=== PATIENT | female | born 1945 | race Caucasian/White ===

== ENCOUNTER 2016-05-20 11:20 | Emergency (ER) | payer MEDICAID ==
[~2016-05-20] VITALS: Ht 152.4 cm; Wt 68.0 kg
[~2016-05-20 11:20] MED LIST: ACET325T33 PO; AMO500 PO; GABA300C16 PO; HYDR-906 PO; IBUP400T22 PO; UDROBDM PO; ULT50 PO; ZOC20 PO
[2016-05-20 11:23] VITALS: Ht 152.4 cm; Wt 68.0 kg
[2016-05-20] MEDS ORDERED: IBUPROFEN 600 MG TAB PO ONE (12:00)
--- NOTE | 2016-05-20 12:19 | RADRPT ---
PROCEDURE: XR Chest/right ribs. CLINICAL INDICATION: Chest pain TECHNIQUE: Chest PA/ribs 3vws COMPARISON: None available FINDINGS: The mediastinal structures are unremarkable. There is calcification of the thoracic aorta (consiste nt with atherosclerosis). The heart is normal in size and configuration. The pulmonary vascularity is normal. The lung valdes are unremarkable. No consolidation is identified. The pleural spaces are unremarkable. There is normal mineralization. No rib fractures are identified IMPRESSION: Calcification of the thoracic aorta (consistent with atherosclerosis). No rib fracture identified No evidence for active cardiopulmonary disease. RPTAT: HGDB .James Rodriguez MD, Date Time Electronically viewed and signed by .James Rodriguez MD, on 05/20/2016 12:19 .B/
[2016-05-20] MEDS ORDERED: IBUP400T22 PO (12:30)
[2016-05-20] MEDS ORDERED: ULT50 PO (12:30)
--- NOTE | 2016-05-20 12:34 | ERD ---
ER Documentation Chief Complaint Date/Time DATE: 05/20/16 TIME: 12:33 Chief Complaint right sided body ache s/p slip and fall 4 days ago HPI This 71-year-old female presents with right-sided chest wall pain after falling and hitting the ground 4 days ago. She has pain with inspiration. She denies hemoptysis, fevers, neck pain, weakness, bowel or bladder incontinence or additional complaints of injury other than her right chest wall. ROS All systems reviewed and are negative except as per history of present illness. Medications Home Meds Active Scripts Tramadol HCl (Tramadol HCl) 50 Mg Tablet, 50 MG PO Q4 Y for PAIN, #15 TAB Prov:JANY DELACRUZ MD 05/20/16 Ibuprofen* (Motrin*) 400 Mg Tab, 400 MG PO Q6, #18 TAB Prov:JANY DELACRUZ MD 05/20/16 Tramadol HCl (Tramadol HCl) 50 Mg Tab, 50 MG PO Q6, #20 TAB Prov:LIZANDRO RODRIGUEZ PA-C 03/25/15 Guaifenesin-Dextromethorphan* (Robitussin* DM) 100MG/10MG/5ML Syrup, 10 ML PO Q6H Y for COUGH, #240 ML 0 Refills Prov:TONY AMATO PA-C 03/23/15 Gabapentin* (Gabapentin*) 300 Mg Capsule, 300 MG PO DAILY, #10 CAP 0 Refills Prov:TONY AMATO PA-C 03/23/15 Hydrocodone Bit-Acetaminophen ([place]) 5-325 Mg Tablet, 1 TAB PO Q4H Y for PAIN, #7 TAB Prov:KELSEY OROZCO DO 12/26/14 Acetaminophen* (Tylenol*) 325 Mg Tablet, 325 MG PO Q4H Y for PAIN AND OR ELEVATED TEMP for 30 Days, TAB Prov:LIZANDRO RODRIGUEZ PA-C 11/19/14 Reported Medications Amoxicillin* (Amoxicillin*) 500 Mg Cap, 500 MG PO TID X 5 DAYS, CAP 06/10/14 Ibuprofen* (Ibuprofen*) 400 Mg Tablet, 400 MG PO Q6-8 HOURS Y for PAIN, TAB 06/10/14 Simvastatin (Simvastatin) 20 Mg Tablet, 20 MG PO HS, TAB 11/05/13 Allergies Allergies: Coded Allergies: No Known Drug Allergies (Verified Allergy, Mild, 03/23/15) PMhx/Soc History of Surgery: Yes (nephrectomy, oophorectomy,cholecystectomy,bilat ear sx ) Anesthesia Reaction: No Hx Neurological Disorder: No Hx Respiratory Disorders: No Hx Cardiac Disorders: No Hx Psychiatric Problems: No Hx Miscellaneous Medical Probl: Yes (dyslipidemia,GERD; ) Hx Alcohol Use: No Hx Substance Use: No Hx Tobacco Use: No Smoking Status: Never smoker Physical Exam Vitals Vital Signs Date Time Temp Pulse Resp B/P Pulse Ox O2 Delivery O2 Flow Rate FiO2 05/20/16 11:23 98.0 92 18 125/65 100 Physical Exam Const: [] Alert, [id number], speaking complete sentences. Head: Atraumatic Eyes: Normal Conjunctiva ENT: Normal External Ears, Nose and Mouth. Neck: Full range of motion..~ No meningismus. Resp: Clear to auscultation bilaterally but there is some tenderness in the right chest wall approximately T5 without crepitance, deformities, skin changes. Cardio: Regular rate and rhythm, no murmurs Abd: Soft, non tender, non distended. Normal bowel sounds Skin: No petechiae or rashes Back: No midline or flank tenderness Ext: No cyanosis, or edema Neur: Awake and alert Psych: Normal Mood and Affect Results 24 hrs Current Medications Medications (Trade) Dose Ordered Sig/Darrel Route PRN Reason Start Time Stop Time Status Last Admin Dose Admin Ibuprofen (Motrin) 600 mg ONCE ONCE PO 05/20/16 12:00 05/20/16 12:01 DC 05/20/16 11:41 Procedures/MDM X-ray right ribs 2V Interpreted by me: Soft Tissue: No acute abnormalities Bones: No acute abnormalities Mediastinum/Cardiac Silhouette/Lungs: [No acute abnormalities]. Impression- normal right rib series Patient was given ibuprofen for pain. Patient presents with signs and symptoms of right rib contusion without evidence of fracture, hemoptysis, hemothorax, pneumothorax, cardiac contusion, additional complications of rib trauma. She will treated with tramadol and ibuprofen further observation at home. The patient was stable with no new complaints during the ER course. Clinically, there is no current evidence to suggest meningitis, sepsis, acute abdomen, pneumonia, acute coronary syndrome, pulmonary embolism, or any other emergent condition appearing to require further evaluation or hospitalization. The patient should certainly return for any new or worsening symptoms per the aftercare instructions. They should otherwise follow-up with her primary care doctor for reevaluation this week. Departure Diagnosis: Primary Impression: Contusion of rib on right side Encounter type: initial encounter Qualified Code: S20.211A - Contusion of rib on right side, initial encounter Condition: Stable Patient Instructions: Rib Contusion Additional Instructions: x ray normal. JANY DELACRUZ MD May 20, 2016 12:34
== END 2016-05-20 12:42 | disposition home or self-care (01) ==
LOC: FTE 11:20
DX: S20.211A Contusion of right front wall of thorax, initial encounter (principal); W01.0XXA Fall on same level from slipping, tripping and stumbling without subsequent striking against object, initial encounter; Y92.9 Unspecified place or not applicable
CPT/HCPCS: 71100; Z7502; Z7610

== ENCOUNTER 2016-06-30 13:17 | Emergency (ER) | payer MEDICAID ==
[~2016-06-30] VITALS: Wt 68.5 kg
[~2016-06-30 13:17] MED LIST changes: +TRAM50TA2 PO; -ULT50 PO
[2016-06-30] MEDS ORDERED: SOD CHLORIDE 0.9% 1,000 ML IV STA (15:26)
[2016-06-30] MEDS ORDERED: ONDANSETRON 4 MG INJ IV STA ×2 (15:26→18:09)
[2016-06-30 15:55] LABS: BASOPHILS % 0.2 % (0.0-2.0); CONDITION 1; EOSINOPHILS # 0.1 10^3/ul (0.0-0.5); EOSINOPHILS % 1.1 % (0.0-7.0); HEMATOCRIT 43.2 % (37.0-47.0); HEMOGLOBIN 14.2 g/dl (12.0-16.0); LYMPHOCYTES # 3.8 10^3/ul (0.8-2.9); LYMPHOCYTES % 35.4 % (15.0-51.0); MEAN CORPUSCULAR HEMOGLOBIN 28.8 pg (29.0-33.0); MEAN CORPUSCULAR HGB CONC 32.9 g/dl (32.0-37.0); MEAN CORPUSCULAR VOLUME 87.5 fl (82.0-101.0); MEAN PLATELET VOLUME 7.9 fl (7.4-10.4); MONOCYTE # 0.6 10^3/ul (0.3-0.9); MONOCYTES % 5.3 % (0.0-11.0); NEUTROPHIL # 6.3 10^3/ul (1.6-7.5); PLATELET COUNT 263 10^3/UL (140-440); RED BLOOD COUNT 4.93 10^6/ul (4.20-5.40); RED CELL DISTRIBUTION WIDTH 14.4 % (11.5-14.5); UNCORRECTED WBC 10.8 10^3/ul (4.8-10.8); WHITE BLOOD COUNT 10.8 10^3/ul (4.8-10.8)
[2016-06-30 16:04] LABS: ALBUMIN 4.7 g/dl (3.3-4.9)
[2016-06-30 16:05] LABS: POTASSIUM 4.3 mmol/L (3.5-5.1)
[2016-06-30 16:06] LABS: ADD UMIC NO; URINE BILIRUBIN (Dip) NEGATIVE (NEGATIVE); URINE BLOOD (Dip) NEGATIVE (NEGATIVE); URINE COLOR LT. YELLOW (YELLOW); URINE GLUCOSE (Dip) NEGATIVE (NEGATIVE); URINE KETONES (Dip) NEGATIVE (NEGATIVE); URINE LEUKOCYTE ESTERASE (Dip) NEGATIVE (NEGATIVE); URINE NITRITE (Dip) NEGATIVE (NEGATIVE); URINE TOTAL PROTEIN (Dip) NEGATIVE (NEGATIVE); URINE UROBILINOGEN (Dip) 0.2 E.U./dL (0.1-1.0)
[2016-06-30 16:07] LABS: ALBUMIN/GLOBULIN RATIO 1.2; BILIRUBIN,INDIRECT 0.1 mg/dl (0-1.1); BILIRUBIN,TOTAL 0.1 mg/dl (0.2-1.3); CALCIUM 9.4 mg/dl (8.4-10.2); CREATININE 0.77 mg/dl (0.44-1.00); TOTAL PROTEIN 8.6 g/dl (6.1-8.1)
--- NOTE | 2016-06-30 16:09 | RADRPT ---
PROCEDURE: XR Chest. CLINICAL INDICATION: Shortness of breath. TECHNIQUE: A single portable view of the chest was obtained. COMPARISON: 05/20/2016 FINDINGS: The aorta is tortuous and atherosclerotic. The cardiomediastinal silhouette is otherwise within nor mal limits. The lung volumes are low with bibasilar atelectasis. The remaining lungs and pleural spa aidee are clear. The soft tissues and osseous structures demonstrate benign age related senescent viral nges. IMPRESSION: No acute cardiopulmonary disease. Low lung volumes with bibasilar compressive atelectasis. RPTAT: HPNM Physician Becky Date Time Electronically viewed and signed by Lucio Nolan Physician on 06/30/2016 16:09 /
--- NOTE | 2016-06-30 17:52 | RADRPT ---
PROCEDURE: CT abdomen and pelvis without contrast. CLINICAL INDICATION: Right upper quadrant pain and prior history of cholecystectomy and nephrectom y TECHNIQUE: CT scan of the abdomen and pelvis without contrast was performed on a multislice CT [facility] utilizing axial imaging from the lung bases through the pubis symphysis. The patient was scann ed without intravenous contrast. Sagittal and coronal reformatted images were made. The CTDIvol is mGy and the DLP is mGycm. One of the following 3 dose reduction techniques were used during this CT examination: automated exp osure control; adjustment of the mA and /or kV according to patient size; or use of iterative recons truciton technique. COMPARISON: 11/05/2013 CT abdomen pelvis. FINDINGS: The lung bases are clear. The visualized heart size demonstrates mild cardiomegaly. No pericardial or pleural effusions are present. A small hiatal hernia is present. The visualized liver, spleen, p ancreas, and bilateral adrenal glands are normal. The patient is status post cholecystectomy and rig ht nephrectomy changes. The visualized left kidney is normal without evidence for hydroureteronephr osis or nephroureterolithiasis. The visualized bowel is nonobstructive. No evidence for diverticulosis, diverticulitis or appendici tis is present. The appendix is normal. A distended urinary bladder is present. The patient is status post hysterectomy changes. No eviden ce for masses, pathologic lymphadenopathy, pneumoperitoneum or ascites is present. The surrounding osseous structures are remarkable for degenerative spondylosis of the imaged spine. Grade 1 spondylolisthesis of L5 on S1 is present without evidence for spondylolysis. Severe degene rative endplate and vacuum disk phenomenon is present at L5-S1. IMPRESSION: 1. No evidence for acute intra-abdominal or pelvic pathology. 2. Small hiatal hernia 3. Status post cholecystectomy, right nephrectomy and hysterectomy changes. 4. Degenerative spondylosis of the imaged spine and grade 1 spondylolisthesis of L5 and S1 without evidence for spondylolysis. RPTAT: HDC .April Brian MD, Date Time Electronically viewed and signed by .April Brian MD, on 06/30/2016 17:52 .C/
[2016-06-30] MEDS ORDERED: ONDA8TAB14 PO (17:58)
[2016-06-30] MEDS ORDERED: ACET500C5 PO (17:58)
--- NOTE | 2016-06-30 18:02 | ERD ---
ER Documentation Chief Complaint Date/Time DATE: 06/30/16 TIME: 18:00 Chief Complaint vomiting since last night worse today. no abd pain . gen weakness ROS All systems reviewed and are negative except as per history of present illness. Medications Home Meds Active Scripts Acetaminophen* (Tylophen*) 500 Mg Capsule, 1 CAP PO Q6H Y for PAIN AND OR ELEVATED TEMP, #15 CAP Prov:JNAY DELACRUZ MD 06/30/16 Ondansetron (Ondansetron Odt) 8 Mg Tab.rapdis, 8 MG PO Q6H Y for NAUSEA AND/OR VOMITING, #8 TAB Prov:JANY DELACRUZ MD 06/30/16 Tramadol HCl (Tramadol HCl) 50 Mg Tablet, 50 MG PO Q4 Y for PAIN, #15 TAB Prov:JANY DELACRUZ MD 05/20/16 Ibuprofen* (Motrin*) 400 Mg Tab, 400 MG PO Q6, #18 TAB Prov:JANY DELACRUZ MD 05/20/16 Tramadol HCl (Tramadol HCl) 50 Mg Tab, 50 MG PO Q6, #20 TAB Prov:LIZANDRO RODRIGUEZ PA-C 03/25/15 Guaifenesin-Dextromethorphan* (Robitussin* DM) 100MG/10MG/5ML Syrup, 10 ML PO Q6H Y for COUGH, #240 ML 0 Refills Prov:TONY AMATO PA-C 03/23/15 Gabapentin* (Gabapentin*) 300 Mg Capsule, 300 MG PO DAILY, #10 CAP 0 Refills Prov:TONY AMATO PA-C 03/23/15 Hydrocodone Bit-Acetaminophen ([place]) 5-325 Mg Tablet, 1 TAB PO Q4H Y for PAIN, #7 TAB Prov:KELSEY OROZCO DO 12/26/14 Acetaminophen* (Tylenol*) 325 Mg Tablet, 325 MG PO Q4H Y for PAIN AND OR ELEVATED TEMP for 30 Days, TAB Prov:LIZANDRO RODRIGUEZ PA-C 11/19/14 Reported Medications Amoxicillin* (Amoxicillin*) 500 Mg Cap, 500 MG PO TID X 5 DAYS, CAP 06/10/14 Ibuprofen* (Ibuprofen*) 400 Mg Tablet, 400 MG PO Q6-8 HOURS Y for PAIN, TAB 06/10/14 Simvastatin (Simvastatin) 20 Mg Tablet, 20 MG PO HS, TAB 11/05/13 Allergies Allergies: Coded Allergies: No Known Drug Allergies (Verified Allergy, Mild, 03/23/15) PMhx/Soc History of Surgery: Yes (nephrectomy, oophorectomy,cholecystectomy,bilat ear sx ) Anesthesia Reaction: No Hx Neurological Disorder: No Hx Respiratory Disorders: No Hx Cardiac Disorders: No Hx Psychiatric Problems: No Hx Miscellaneous Medical Probl: Yes (dyslipidemia,GERD; ) Hx Alcohol Use: No Hx Substance Use: No Hx Tobacco Use: No Physical Exam Vitals Vital Signs Date Time Temp Pulse Resp B/P Pulse Ox O2 Delivery O2 Flow Rate FiO2 06/30/16 13:36 97.7 79 20 140/75 98 Physical Exam Const: [] Alert, [id number] per Head: Atraumatic Eyes: Normal Conjunctiva ENT: Normal External Ears, Nose and Mouth. Neck: Full range of motion..~ No meningismus. Resp: Clear to auscultation bilaterally Cardio: Regular rate and rhythm, no murmurs Abd: Soft, mild generalized tenderness primarily in the right side of the abdomen. No exquisite Colon's sign and no tenderness at McBurney's point, non distended. Normal bowel sounds Skin: No petechiae or rashes Back: No midline or flank tenderness Ext: No cyanosis, or edema Neur: Awake and alert Psych: Normal Mood and Affect Result Diagram: 06/30/16 1543 06/30/16 1543 Results 24 hrs Laboratory Tests Test 06/30/16 15:40 06/30/16 15:43 Urine Bilirubin NEGATIVE Urine Clarity CLEAR Urine Color LT. YELLOW Urine Glucose NEGATIVE% Urine Hemoglobin NEGATIVE Urine Ketones NEGATIVE Urine Leukocyte Esterase NEGATIVE Urine Nitrite NEGATIVE Urine Specific [place] <=1.005 Urine Total Protein NEGATIVE Urine Urobilinogen 0.2 E.U./dL Urine pH 5.5 Alanine Aminotransferase (ALT/SGPT) 34IU/L Albumin 4.7g/dl Albumin/Globulin Ratio 1.20 Alkaline Phosphatase 117IU/L Anion Gap 18 Aspartate Amino Transf (AST/SGOT) 31IU/L Basophils # 0.010^3/ul Basophils % 0.2% Blood Morphology Comment Blood Urea Nitrogen 15mg/dl Calcium Level 9.4mg/dl Carbon Dioxide Level 26mmol/L Chloride Level 104mmol/L Creatinine 0.77mg/dl Direct Bilirubin 0.00mg/dl Eosinophils # 0.110^3/ul Eosinophils % 1.1% Globulin 3.90g/dl Glucose Level 121mg/dl Hematocrit 43.2% Hemoglobin 14.2g/dl Indirect Bilirubin 0.1mg/dl Lipase 92U/L Lymphocytes # 3.810^3/ul Lymphocytes % 35.4% Mean Corpuscular Hemoglobin 28.8pg Mean Corpuscular Hemoglobin Concent 32.9g/dl Mean Corpuscular Volume 87.5fl Mean Platelet Volume 7.9fl Monocytes # 0.610^3/ul Monocytes % 5.3% Neutrophils # 6.310^3/ul Neutrophils % 58.0% Nucleated Red Blood Cells # 0.010^3/ul Nucleated Red Blood Cells % 0.0/100WBC Platelet Count 81743^3/UL Potassium Level 4.3mmol/L Red Blood Count 4.9310^6/ul Red Cell Distribution Width 14.4% Sodium Level 144mmol/L Total Bilirubin 0.1mg/dl Total Protein 8.6g/dl White Blood Count 10.810^3/ul Current Medications Medications (Trade) Dose Ordered Sig/Darrel Route PRN Reason Start Time Stop Time Status Last Admin Dose Admin Sodium Chloride (NS) 1,000 ml @ 1,000 mls/hr Q1H STAT IV 06/30/16 15:26 06/30/16 16:25 DC 06/30/16 15:43 Ondansetron HCl (Zofran Inj) 4 mg ONCE STAT IV 06/30/16 15:26 06/30/16 15:28 DC 06/30/16 15:43 Procedures/MDM Chest X-ray 1V Interpreted by me: Soft Tissue: No acute abnormalities Bones: No acute abnormalities Mediastinum/Cardiac Silhouette/Lungs: [No acute abnormalities]. Impression- patient has normal 1 view chest EKG: Rate/Rhythm: [Normal Sinus Rhythm] rate equals 67 QRS, ST, T-waves: [No changes consistent w/ acute ischemia] Impression: [No evidence of ischemia or arrhythmia] CMP, CBC, UA negative. Given the uncertain cause of pain CT abdomen pelvis performed which is is no acute findings per radiologist. Patient improved symptoms with Zofran and Tylenol. Patient has vomiting and abdominal pain of uncertain etiology. Signs and symptoms not consistent with appendicitis, acute abdomen, UTI, obstruction, aortic disease, mesenteric ischemia. Patient felt better and was ambulatory. I suspect she is a viral gastroenteritis. She will be treated with Zofran and Tylenol further observation at home. The patient was stable with no new complaints during the ER course. Clinically, there is no current evidence to suggest meningitis, sepsis, acute abdomen, pneumonia, acute coronary syndrome, pulmonary embolism, or any other emergent condition appearing to require further evaluation or hospitalization. The patient should certainly return for any new or worsening symptoms per the aftercare instructions. They should otherwise follow-up with her primary care doctor for reevaluation this week. Departure Diagnosis: Primary Impression: Abdominal pain Abdominal location: unspecified location Qualified Code: R10.9 - Abdominal pain, unspecified location Additional Impression: Vomiting Vomiting type: unspecified Vomiting Intractability: non-intractable Nausea presence: unspecified Qualified Code: R11.10 - Non-intractable vomiting, presence of nausea not specified, unspecified vomiting type Condition: Stable Patient Instructions: Abdominal Pain, Vomiting (6Y-Adult) Additional Instructions: Examines normal hoy. Cheque otro vez con lott doctor primario en el proximo stein or regresa para mas o nueva simptomas. JANY DELACRUZ MD Jun 30, 2016 18:02
[2016-06-30 18:07] VITALS: BP 140/78; PULSE 68; RESP 20; TEMP 98.3
== END 2016-06-30 18:24 | disposition home or self-care (01) ==
LOC: FTE 13:17
DX: R10.84 Generalized abdominal pain (principal)
CPT/HCPCS: 36415; 71010; 74176; 80053; 81003; 83690; 85025; 93005; 96374; 96376; J2405; J7030; Z7502

== ENCOUNTER 2016-07-11 13:07 | Emergency (ER) | payer MEDICAID ==
[~2016-07-11] VITALS: Ht 152.4 cm; Wt 68.0 kg
[~2016-07-11 13:07] MED LIST changes: +ACET500C5 PO; +ONDA8TAB14 PO
[2016-07-11 13:28] VITALS: Ht 152.4 cm; Wt 68.0 kg
[2016-07-11] MEDS ORDERED: TETRACAINE 0.5% 4 ML OPH LEFT EYE ONE (17:30)
[2016-07-11] MEDS ORDERED: FLUORESCEIN STRIP LEFT EYE ONE (17:30)
--- NOTE | 2016-07-11 18:28 | ERD ---
ER Documentation Chief Complaint Date/Time DATE: 07/11/16 TIME: 18:24 Chief Complaint Pt presents with L eye paijn and redness after getting pine-abi in her eye. (TRIXIE GUIDRY) HPI This is a 71-year-old female presents to the ER with left eye pain, redness and itchiness after she got painful in her eye on Tuesday. She states she washed her eye immediately. Patient however states that she has had discharge from her last INR when she wakes up in the morning her eyes glued shut together. Patient does admit to some mild blurriness of vision. She denies any vision loss. She denies seeing any halos, flashes of light. She did not denies any fevers or chills. She denies any headache. (TRIXIE GUIDRY) ROS 12 point review of systems was done, all negative except per HPI. (TRIXIE GUIDRY) Medications Home Meds Active Scripts Acetaminophen* (Tylophen*) 500 Mg Capsule, 1 CAP PO Q6H Y for PAIN AND OR ELEVATED TEMP, #15 CAP Prov:JANY DELACRUZ MD 06/30/16 Ondansetron (Ondansetron Odt) 8 Mg Tab.rapdis, 8 MG PO Q6H Y for NAUSEA AND/OR VOMITING, #8 TAB Prov:JANY DELACRUZ MD 06/30/16 Tramadol HCl (Tramadol HCl) 50 Mg Tablet, 50 MG PO Q4 Y for PAIN, #15 TAB Prov:JANY DELACRUZ MD 05/20/16 Ibuprofen* (Motrin*) 400 Mg Tab, 400 MG PO Q6, #18 TAB Prov:JANY DELACRUZ MD 05/20/16 Tramadol HCl (Tramadol HCl) 50 Mg Tab, 50 MG PO Q6, #20 TAB Prov:LIZANDRO RODRIGUEZ PA-C 03/25/15 Guaifenesin-Dextromethorphan* (Robitussin* DM) 100MG/10MG/5ML Syrup, 10 ML PO Q6H Y for COUGH, #240 ML 0 Refills Prov:TONY AMATO PA-C 03/23/15 Gabapentin* (Gabapentin*) 300 Mg Capsule, 300 MG PO DAILY, #10 CAP 0 Refills Prov:TONY AMATO PA-C 03/23/15 Hydrocodone Bit-Acetaminophen ([place]) 5-325 Mg Tablet, 1 TAB PO Q4H Y for PAIN, #7 TAB Prov:KELSEY OROZCO 12/26/14 Acetaminophen* (Tylenol*) 325 Mg Tablet, 325 MG PO Q4H Y for PAIN AND OR ELEVATED TEMP for 30 Days, TAB Prov:LIZANDRO RODRIGUEZ PA-C 11/19/14 Reported Medications Amoxicillin* (Amoxicillin*) 500 Mg Cap, 500 MG PO TID X 5 DAYS, CAP 06/10/14 Ibuprofen* (Ibuprofen*) 400 Mg Tablet, 400 MG PO Q6-8 HOURS Y for PAIN, TAB 06/10/14 Simvastatin (Simvastatin) 20 Mg Tablet, 20 MG PO HS, TAB 11/05/13 Allergies Allergies: Coded Allergies: No Known Drug Allergies (Verified Allergy, Mild, 03/23/15) PMhx/Soc History of Surgery: Yes (nephrectomy, oophorectomy,cholecystectomy,bilat ear sx ) Anesthesia Reaction: No Hx Neurological Disorder: No Hx Respiratory Disorders: No Hx Cardiac Disorders: No Hx Psychiatric Problems: No Hx Miscellaneous Medical Probl: Yes (dyslipidemia,GERD; ) Hx Alcohol Use: No Hx Substance Use: No Hx Tobacco Use: No Smoking Status: Current every day smoker (TRIXIE GUIDRY) Physical Exam Vitals Vital Signs Date Time Temp Pulse Resp B/P Pulse Ox O2 Delivery O2 Flow Rate FiO2 07/11/16 13:28 98.1 91 20 120/64 98 (JANY DELACRUZ MD) Physical Exam GENERAL: The patient is well developed and appropriate for usual state of health , in no apparent distress. HEENT: Atraumatic. Left conjunctiva is injected. There is some yellowish discharge from the medial canthus of the eye. Nonpainful extraocular movements. Patient has some surrounding erythema. CHEST: Clear to auscultation bilaterally. There are no rales, wheezes or rhonchi. HEART: Regular rate and rhythm. No murmurs, clicks, rubs or gallops. NEURO: Alert and oriented. (TRIXIE GUIDRY) Results 24 hrs Current Medications Medications (Trade) Dose Ordered Sig/Darrel Route PRN Reason Start Time Stop Time Status Last Admin Dose Admin Tetracaine HCl (Tetracaine 0.5% Steri-Unit Abi) 1 drop ONCE ONCE LEFT EYE 07/11/16 17:30 2 17:31 DC Fluorescein Sodium (Jwtrp-G-Qewgz) 1 strip ONCE ONCE LEFT EYE 07/11/16 17:30 2 17:31 DC (JANY DELACRUZ MD) Procedures/MDM Patient was stable throughout ER course. I contacted poison control and was told to irrigate patient signed fluorescein examination. Fluorescein examination was done by myself. There was a small abrasion near the medial canthus. No ulcerations were seen. Patient's visual acuity was normal. Patient's eye was irrigated with eyewash. Patient will be sent home with tobramycin eyedrops. 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 My medical decision making with the patient she understands and agrees with plan. (TRIXIE GUIDRY) note-agree with detailed history and assessment of mid-level provider. Subjective-patient had [place]Abi in her eye 2 days ago complains of irritation. Denies any visual changes or visual field deficits. Objective -patient has a visual acuity within normal limits no signs of a slight corneal abrasion. Signs also consistent with chemical irritation. Assessment-patient has what appears to be chemical conjunctivitis with a slight corneal abrasion. There is no evidence of visual changes or visual field deficits or orbital or periorbital cellulitis, additional emergencies Plan I have she will be discharged home with ophthalmic antibiotic cream instructed to follow-up with ophthalmology (JANY DELACRUZ MD) Departure Diagnosis: Primary Impression: Chemical exposure of eye Condition: Stable TRIXIE GUIDRY Jul 11, 2016 18:28 JANY DELACRUZ MD Jul 11, 2016 18:38
[2016-07-11] MEDS ORDERED: SDSTOBDEX LEFT EYE (18:35)
[2016-07-11] MEDS ORDERED: TBR.3OP5 RIGHT EYE (18:36)
[2016-07-11 18:55] VITALS: BP 118/72; PULSE 88; RESP 20; TEMP 98
[2016-07-11] MEDS ORDERED: OPHTHALMIC IRRIG SOLUTION 120 ML LEFT EYE ONE (19:00)
== END 2016-07-11 18:56 | disposition home or self-care (01) ==
LOC: FTE 13:07
DX: Z77.098 Contact with and (suspected) exposure to other hazardous, chiefly nonmedicinal, chemicals (principal); S05.02XA Injury of conjunctiva and corneal abrasion without foreign body, left eye, initial encounter; F17.210 Nicotine dependence, cigarettes, uncomplicated; X58.XXXA Exposure to other specified factors, initial encounter; Y92.9 Unspecified place or not applicable
CPT/HCPCS: Z7502; Z7610; 99283

== ENCOUNTER 2017-04-20 08:09 | Emergency (ER) | payer SELFPAY ==
[~2017-04-20] VITALS: Ht 162.6 cm; Wt 70.0 kg
[~2017-04-20 08:09] MED LIST changes: -AMO500 PO; +AMOX500C2 PO; +SIMV20TA2 PO; +TBR.3OP5 RIGHT EYE; -ZOC20 PO
[2017-04-20 08:13] VITALS: Ht 162.6 cm; Wt 70.0 kg
[2017-04-20] MEDS ORDERED: PRED20TA PO (08:44)
[2017-04-20] MEDS ORDERED: CETI10CA PO (08:44)
--- NOTE | 2017-04-20 08:48 | ERD ---
ER Documentation Chief Complaint Chief Complaint ithchy all over body x 1 week HPI 72-year-old female presents with itchy rash over the trunk and extremities for the last week. She denies any vomiting, fevers, new medications or new foods. She denies any previous history. She denies other medical conditions. ROS All systems reviewed and are negative except as per history of present illness. Medications Home Meds Active Scripts Cetirizine Hcl* (Zyrtec*) 10 Mg Capsule, 10 MG PO DAILY, #15 TAB.CHEW Prov:JANY DELACRUZ MD 04/20/17 Prednisone* (Prednisone*) 20 Mg Tab, 40 MG PO DAILY for 4 Days, TAB Start April 21, 2017 Prov:JANY DELACRUZ MD 04/20/17 Tobramycin Sulfate* (Tobrex*) 0.3%-5ml Opht, 1 DROP RIGHT EYE Q4H for 5 Days, EA Prov:TRIXIE GUIDRY 07/11/16 Acetaminophen* (Tylophen*) 500 Mg Capsule, 1 CAP PO Q6H Y for PAIN AND OR ELEVATED TEMP, #15 CAP Prov:JANY DELACRUZ MD 06/30/16 Ondansetron (Ondansetron Odt) 8 Mg Tab.rapdis, 8 MG PO Q6H Y for NAUSEA AND/OR VOMITING, #8 TAB Prov:JANY DELACRUZ MD 06/30/16 Tramadol HCl (Tramadol HCl) 50 Mg Tablet, 50 MG PO Q4 Y for PAIN, #15 TAB Prov:JANY DELACRUZ MD 05/20/16 Ibuprofen* (Motrin*) 400 Mg Tab, 400 MG PO Q6, #18 TAB Prov:JANY DELACRUZ MD 05/20/16 Tramadol HCl (Tramadol HCl) 50 Mg Tab, 50 MG PO Q6, #20 TAB Prov:LIZANDRO RODRIGUEZ PA-C 03/25/15 Guaifenesin-Dextromethorphan* (Robitussin* DM) 100MG/10MG/5ML Syrup, 10 ML PO Q6H Y for COUGH, #240 ML 0 Refills Prov:TONY AMATO PA-C 03/23/15 Gabapentin* (Gabapentin*) 300 Mg Capsule, 300 MG PO DAILY, #10 CAP 0 Refills Prov:TONY AMATO PA-C 03/23/15 Hydrocodone Bit-Acetaminophen ([place]) 5-325 Mg Tablet, 1 TAB PO Q4H Y for PAIN, #7 TAB Prov:KELSEY OROZCO 12/26/14 Acetaminophen* (Tylenol*) 325 Mg Tablet, 325 MG PO Q4H Y for PAIN AND OR ELEVATED TEMP for 30 Days, TAB Prov:LIZANDRO RODRIGUEZ PA-C 11/19/14 Reported Medications Amoxicillin* (Amoxicillin*) 500 Mg Cap, 500 MG PO TID X 5 DAYS, CAP 06/10/14 Ibuprofen* (Ibuprofen*) 400 Mg Tablet, 400 MG PO Q6-8 HOURS Y for PAIN, TAB 06/10/14 Simvastatin (Simvastatin) 20 Mg Tablet, 20 MG PO HS, TAB 11/05/13 Allergies Allergies: Coded Allergies: No Known Drug Allergies (Verified Allergy, Mild, 03/23/15) PMhx/Soc History of Surgery: Yes (nephrectomy, oophorectomy,cholecystectomy,bilat ear sx ) Anesthesia Reaction: No Hx Neurological Disorder: No Hx Respiratory Disorders: No Hx Cardiac Disorders: No Hx Psychiatric Problems: No Hx Miscellaneous Medical Probl: Yes (dyslipidemia,GERD; ) Hx Alcohol Use: No Hx Substance Use: No Hx Tobacco Use: No Physical Exam Vitals Vital Signs Date Time Temp Pulse Resp B/P Pulse Ox O2 Delivery O2 Flow Rate FiO2 04/20/17 08:13 98.4 93 18 131/62 98 Physical Exam Const: [] Alert, [id number] per Head: Atraumatic Eyes: Normal Conjunctiva. Nonicteric. ENT: Normal External Ears, Nose and Mouth. Neck: Full range of motion..~ No meningismus. Resp: Clear to auscultation bilaterally Cardio: Regular rate and rhythm, no murmurs Abd: Soft, non tender, non distended. Normal bowel sounds Skin: No petechiae or purpura. Scattered wheals with excoriations and dermatographia some on the trunk and extremities. Back: No midline or flank tenderness Ext: No cyanosis, or edema Neur: Awake and alert Psych: Normal Mood and Affect Results 24 hrs Current Medications Medications (Trade) Dose Ordered Sig/Darrel Route PRN Reason Start Time Stop Time Status Last Admin Dose Admin Prednisone (Prednisone) 40 mg ONCE ONCE PO 04/20/17 09:00 04/20/17 09:01 04/20/17 08:48 Diphenhydramine HCl (Benadryl) 25 mg ONCE ONCE IM 04/20/17 09:00 04/20/17 09:01 04/20/17 08:47 Procedures/MDM Patient presents with signs and symptoms of acute urticaria without evidence of anaphylaxis, cellulitis, respiratory distress or life-threatening rashes appropriate. She has no evidence of hepatobiliary disease. She was given prednisone 40 mg here and Benadryl 25 mg I am. She was treated with Zyrtec and prednisone at home and primary care follow-up and return precautions. The patient was stable with no new complaints during the ER course. Clinically, there is no current evidence to suggest meningitis, sepsis, acute abdomen, pneumonia, acute coronary syndrome, pulmonary embolism, or any other emergent condition appearing to require further evaluation or hospitalization. The patient should certainly return for any new or worsening symptoms per the aftercare instructions. They should otherwise follow-up with her primary care doctor for reevaluation this week. Departure Diagnosis: Primary Impression: Urticaria Condition: Stable Patient Instructions: Hives [facility] Usted se sheets hecho un examen mdico de control que le indica que no est en yrn condicin que requiera tratamiento urgente en el Departamento de Emergencia. Un estudio ms profundo y el tratamiento de lott condicin pueden esperar sin ningn riesgo hasta que usted sea atendida/o en el consultorio de lott mdico o yrn cl bradley. Es responsabilidad suya arreglar yrn michel para el seguimiento del fani. MANEJO DE CONDICIONES NO URGENTES EN EL FUTURO 1) Si usted tiene un mdico de atencin primaria: Usted debera llamar a lott mdico de atencin primaria antes de venir al departamento de emergencia. Despus de las horas de consultorio, lott doctor o lott asociado/a est disponible por telfono. El mdico o enfermero de kimber en el servicio telefnico puede asesorarle por yareli medio para atender el problema, o fani contrario se puede programar yrn michel. 2) Si usted no tiene un mdico de atencin primaria: Llame al mdico o clnica de referencia que aparece abajo nava las horas de consultorio para hacer yrn michel para que le vean. CLINICAS: [facility] [phone] [facility] [phone] [facility] [phone] [facility] [facility] [phone] [facility]. [place] [id number] [phone] [facility]. [phone] [address] Additional Instructions: probalamente un allergia. Cheque otro vez con lott doctor primario en el proximo stein or regresa para mas o nueva simptomas. JANY DELACRUZ MD Apr 20, 2017 08:48
[2017-04-20] MEDS ORDERED: DIPHENHYDRAMINE 50 MG INJ IM ONE (09:00)
[2017-04-20] MEDS ORDERED: predniSONE 20 MG TAB PO ONE (09:00)
== END 2017-04-20 09:13 | disposition home or self-care (01) ==
LOC: FTE 08:09
DX: L50.9 Urticaria, unspecified (principal)
CPT/HCPCS: 96372; 99284; J1200; J7512